=== PATIENT | female | born 1995 | race Caucasian/White ===

== ENCOUNTER 2017-04-22 17:02 | Inpatient (IN) | payer OTHER, SELFPAY ==
[~2017-04-22] VITALS: Ht 170.2 cm; Wt 60.3 kg
[2017-04-22 17:17] VITALS: BP 125/90
[2017-04-22] MEDS ORDERED: BUSPIRONE HCL10 MG PO (17:21)
[2017-04-22] MEDS ORDERED: NUVARING VAGIN1 EACH VAG (17:21)
[2017-04-22 18:24] LABS: ABSOLUTE BASOPHILS 0.1 thou/uL (0.0-0.2); ABSOLUTE MONOCYTES 0.2 thou/uL (0.0-1.2); ABSOLUTE NEUTROPHILS 6.4 thou/uL (1.6-8.1); BASOPHILS 0.6 %; EOSINOPHILS 0.1 %; HEMATOCRIT 41.4 % (37.0-47.0); LYMPHOCYTES 23.5 %; MCH 30.2 pg (26.0-34.0); MCHC 33.9 g/dL (28.0-37.0); MCV 89.1 fL (80.0-100.0); MPV 8.1 fl. (7.2-11.1); NUCLEATED RBCS 0 /100WBC; PLATELET COUNT* 300 thou/uL (150-400); POLYS 73.8 %; RBC 4.65 mil/uL (4.20-5.00); RDW-CV 12.9 % (10.5-14.5); WBC 8.6 thou/uL (4.0-11.0)
[2017-04-22 18:31] LABS: ANION GAP 19 mmol/L (7-16); BUN 11 mg/dL (7-18); CALCIUM 8.9 mg/dL (8.5-10.1); CHLORIDE 103 mmol/L (98-107); CO2 19 mmol/L (21-32); CREATININE 1.2 mg/dL (0.6-1.3); GLUCOSE 177 mg/dL (70-99); SODIUM 141 mmol/L (136-145)
[2017-04-22 18:37] LABS: POTASSIUM 2.4 mmol/L (3.5-5.1)
[2017-04-22 18:39] LABS: ALBUMIN 4.2 g/dL (3.4-5.0); ALKALINE PHOSPHATASE 57 U/L (46-116); SGOT 13 U/L (15-37); SGPT 16 U/L (30-65); TOTAL BILIRUBIN 0.4 mg/dL (<0.1-1.0); TOTAL PROTEIN 7.6 g/dL (6.4-8.2); TROPONIN-I LEVEL <0.06 ng/mL (<0.06)
[2017-04-22 19:17] LABS: URINE BILIRUBIN NEGATIVE (Negative); URINE BLOOD NEGATIVE (Negative); URINE CLARITY CLEAR; URINE COLOR YELLOW; URINE GLUCOSE-RANDOM 2+ (Negative); URINE LEUKOCYTES-REFLEX NEGATIVE (Negative); URINE NITRITE-REFLEX NEGATIVE (Negative); URINE PROTEIN NEGATIVE (Negative); URINE UROBILINOGEN 0.2 E.U./dl (0.2-1.0)
[2017-04-22 19:18] LABS: URINE KETONES 3+ (Negative)
[2017-04-22 19:26] LABS: AMP/METHAMP Negative (Negative); BARBITURATES Negative (Negative); BENZODIAZEPINES Negative (Negative); COCAINE Negative (Negative); METHADONE Negative (Negative); OPIATES Negative (Negative); PCP Negative (Negative); THC Negative (Negative)
[2017-04-22 20:11] VITALS: BP 135/85
[2017-04-22 20:30] VITALS: BP 134/80
[2017-04-23] VITALS (7 sets, daily range): BP systolic 106–131; BP diastolic 59–73
--- NOTE | 2017-04-23 03:19 | NUR ---
PT ADMIT TO ROOM 2008 AT 2015. PT ALERT ORIENTED. PT HYPOKALEMIC. POTASSIUM 40 MEQ GIVEN IN ED. ANOTHER 40MEQ GIVEN AND REDRAW AT 0200. POTASSIUM NOW AT 4.1. NS AT 100ML/HR. TELEMETRY SHOWS SR. VSS. IV IN RAC POSITIONAL AND VERY TENDER. IV RESTARTED IN L FA. MILD YOUNG 03/30. PT GIVEN QUIET ROOM AND REASSURANCE. WILL CONTINUE TO MONITOR.
--- NOTE | 2017-04-23 08:40 | NUR ---
VSS, ASSUMED CARE IN THE AM, ASSESSMENT PERFORMED AND CHARTED, FALL PRECAUTIONS IN PLACE AND CALL LIGHT IN REACH, PT IS A&O4 AND UP AD ROSALIA, DENIES ANY PAIN AND ON RA, PT GOAL IS TO IMPROVE LABS, PT IS TRACING SR ON THE MONITOR, BOY FRIEND HAS BEEN AT BED SIDE THIS AM, WILL FOLLOW WITH PLAN OF CARE.
--- NOTE | 2017-04-23 10:18 | NUR ---
CM ASSESSMENT: Pt is A&O. Resides at home with her sig other. Independent with ADLs, works FT. No DME. No hx of HH or SNF. Strong support sx. Goal is to return home once medically stable for dc. Following.
--- NOTE | 2017-04-23 10:39 | NUR ---
This RN agrees with the assessment of Kyle BENZ
--- NOTE | 2017-04-23 12:47 | EKG ---
[place] [address] ELECTROCARDIOGRAM REPORT Name: MAIRA TELLEZ Room: [address] IN [facility]#: [id number] Admission: 04/22/17 Attend Phys: Justin Valencia Discharge: Date of : 89 Report #: [id number] THIS REPORT FOR: //name// [facility] ED Test Date: 2017-04-22 Test Time: 18:30:08 Pat Name: MAIRA TELLEZ Department: Room: [facility] Gender: F Compensation And Benefits Advisor: Juan BUSTILLO : 1995 Requested By: Joseline Schmidt Order Number: [id number] MD: Jose F Nowak Measurements Intervals [place] Rate: 127 P: 94 DE: 117 QRS: 44 QRSD: 87 T: 64 QT: 425 QTc: 619 Interpretive Statements Sinus tachycardia RSR' in V1 or V2, right VCD or RVH Borderline ST depression, lateral leads Prolonged QT interval Electronically Signed On 04-23-2017 12:47:34 HEAD STRENGTH AND CONDITIONING COACH by Jose F Nowak [email or web address] <ELECTRONICALLY SIGNED> By: Jose F Nowak MD, FAC 04/23/17 1247 1830 1830 Jose F Nowak MD, [facility] /EPI
--- NOTE | 2017-04-23 12:47 | EKG ---
[place] [address] ELECTROCARDIOGRAM REPORT Name: MAIRA TELLEZ Room: [address] ADM IN .R.#: [id number] Admission: 04/22/17 Attend Phys: Justin Valencia Discharge: Date of : [birth year] Report #: [id number] THIS REPORT FOR: //name// [facility] ED Test Date: 2017-04-22 Test Time: 17:14:23 Pat Name: MAIRA TELLEZ Department: Room: [address] Gender: F Title Curator: maximo : 1995 Requested By: Joseline Schmidt Order Number: [id number] Olinda MD: Jose F Nowak Measurements Intervals [place] Rate: 91 P: RI: QRS: 53 QRSD: 95 T: 45 QT: 355 QTc: 437 Interpretive Statements sinus rhythm RSR' in V1 or V2, probably normal variant Baseline wander in lead(s) II,III,aVF No previous ECG available for comparison Electronically Signed On 04-23-2017 12:46:54 CIRCUS HAND by Jose F Nowak [email or web address] <ELECTRONICALLY SIGNED> By: Jose F Nowak MD, FAC 04/23/17 1246 1714 1714 Jose F Nowak MD, [facility] /EPI
--- NOTE | 2017-04-23 13:49 | NUR ---
Nutrition: Consult received for "6# loss." Pt stated she has lost maybe 5# in past month. She stated she fluctuates 130-135#. Current wt 133#. She stated she doesn't have a good appetite, but doesn't feel like her wt has changed significantly. BG 177, albumin 4.2. Pt stated she has a family h/o DM and OBE. She has never been DX c DM, but her BG is up this stay. Advised her to follow her BG with her PCP. RX noted. Regular diet. Pt appears at low nutrition risk. H/o anxiety. Admitted for anxiety, hypokalemia.
--- NOTE | 2017-04-23 15:56 | NUR ---
VSS, RECIEVED D/C ORDERS, FILLED OUT D/C PAPERS AND PROVITED D/C INSTRUCTIONS, PT IV AND TELE MONITOR TAKEN OUT AND OFF, PT DENIES ANY QUESTIONS OR CONCERNS AT TIME OF D/C PT WALKED OUT BY STAFF TO CAR, ALL BELONGINGS GATHERED AND PLACED WITH PT,
== END 2017-04-23 17:35 | disposition home or self-care (01) | DRG 641 ==
LOC: M.ERS 17:02 → M.2W 18:49 → M.TBA-ER 18:49 → M.2W 20:47
PROVIDERS: Physician Assistant; ADMIT Internal Medicine
DX: E87.6 Hypokalemia (principal); F41.9 Anxiety disorder, unspecified; I10 Essential (primary) hypertension; J20.9 Acute bronchitis, unspecified; Z88.6 Allergy status to analgesic agent